=== PATIENT | female | born 1970 | race Caucasian/White ===

== ENCOUNTER 2023-06-20 07:11 | Inpatient (IN) | payer OTHER, MEDICAID ==
[~2023-06-20] VITALS: Ht 175.3 cm; Wt 67.1 kg
[2023-06-20] MEDS ORDERED: CLINDAMYCIN PHOS 900 MG/ D5W 50 ML PREMIX IV ONE (08:30)
[2023-06-20] MEDS ORDERED: CINA60TA PO (08:37)
[2023-06-20] MEDS ORDERED: LORA10TA7 PO (08:37)
[2023-06-20] MEDS ORDERED: PRO10 PO (08:37)
[2023-06-20] MEDS ORDERED: QUET300T2 PO (08:37)
[2023-06-20] MEDS ORDERED: ATOR10TA68 PO (08:37)
[2023-06-20] MEDS ORDERED: ONDANSETRON HCL 4 MG/2 ML VIAL ONE (09:38)
[2023-06-20] MEDS ORDERED: MIDAZOLAM HCL/PF 2 MG/2 ML SYRINGE ONE (09:38)
[2023-06-20] MEDS ORDERED: WATER FOR IRRIGATION,STERILE 1,000 ML IRRIG.SOLN IR ONE (09:38)
[2023-06-20] MEDS ORDERED: DEXAMETHASONE SOD PHOSPHATE 4 MG/ML VIAL ONE (09:38)
[2023-06-20] MEDS ORDERED: LIDOCAINE/EPI 1% 1:100000 20 ML VIAL ONE (09:38)
[2023-06-20] MEDS ORDERED: fentaNYL CITRATE/PF 100 MCG/2 ML AMP ONE (09:38)
[2023-06-20] MEDS ORDERED: NS IRRIG SOLN 1000 ML IR ONE (09:38)
[2023-06-20] MEDS ORDERED: SEVOFLURANE 15 MIN GAS INH ONE (09:38)
[2023-06-20] MEDS ORDERED: SUCCINYLCHOLINE CHLORIDE 20 MG/ML(QUELICIN) ONE (09:38)
[2023-06-20] MEDS ORDERED: MIDAZOLAM HCL 5 MG/5 ML VIAL IVP PRN (12:30)
[2023-06-20] MEDS ORDERED: HYDROmorphone 1 MG/ML INJ. CARTRIDGE IVP PRN ×2 (12:30)
[2023-06-20] MEDS ORDERED: ACETAMINOPHEN I.V. 1000 MG 100 ML IV ONE (12:30)
[2023-06-20] MEDS ORDERED: ONDANSETRON HCL 4 MG/2 ML VIAL IVP PRN ×2 (12:30→13:45)
[2023-06-20] MEDS ORDERED: NALOXONE HCL 0.4 MG/ML AMP (NARCAN) IVP PRN ×2 (12:30)
[2023-06-20] MEDS ORDERED: KETOROLAC TROMETHAMINE 30 MG VIAL IVP PRN (12:30)
[2023-06-20] MEDS ORDERED: ONDANSETRON 4 MG ODT TAB PO PRN (13:45)
[2023-06-20] MEDS ORDERED: NALOXONE HCL 2 MG/2 ML SYR IVP PRN (13:45)
[2023-06-20] MEDS ORDERED: HYDROcodone/ACETAMIN 5-325 MG TAB (NORCO/ VICODIN) PO PRN (13:45)
[2023-06-20 14:05] VITALS: BP_SYST 105; PULSE 66; RESP 16; TEMP 97.7; O2SAT 98
[2023-06-20 14:14] VITALS: BP_SYST 105; PULSE 66; RESP 16; TEMP 97.7; O2SAT 98
[2023-06-20 16:48] VITALS: BP_SYST 107; PULSE 64; RESP 16; TEMP 97.2; O2SAT 96
[2023-06-20 17:32] LABS: CALCIUM 9.2 mg/dL (8.4-11.0); CREATININE 0.83 mg/dL (0.55-1.30); POTASSIUM 3.9 mmol/L (3.5-5.1)
[2023-06-20] MEDS: KCL 20 mEq in D5/0.45NS 1000mL 1,000 ML IV SCH (19:07)
[2023-06-20 20:10] VITALS: BP_SYST 109; PULSE 78; RESP 18; TEMP 97.8; O2SAT 98
[2023-06-20 20:11] VITALS: O2SAT 98
[2023-06-21] VITALS: BP_SYST 115; PULSE 68; RESP 17; TEMP 96.7; O2SAT 100
[2023-06-21] MEDS: KCL 20 mEq in D5/0.45NS 1000mL 1,000 ML IV SCH (03:23)
[2023-06-21 06:52] LABS: ALBUMIN 3.2 g/dL (3.4-4.8); CALCIUM 8.1 mg/dL (8.4-11.0)
[2023-06-21] MEDS ORDERED: LEVOTHYROXINE SODIUM 0.112 MG TABLET PO SCH (07:00)
[2023-06-21 08:00] VITALS: BP_SYST 141; PULSE 74; RESP 18; TEMP 98; O2SAT 99
[2023-06-21] MEDS ORDERED: FLUoxetine HCL 10 MG CAPSULE (PROzac) PO SCH (09:00)
[2023-06-21] MEDS ORDERED: LORATADINE 10 MG TABLET PO SCH (09:00)
[2023-06-21] MEDS ORDERED: ATORVASTATIN 10 MG TABLET PO SCH (09:00)
[2023-06-21] MEDS ORDERED: QUEtiapine FUMARATE 100 MG TABLET PO SCH (09:00)
[2023-06-21 11:18] VITALS: BP_SYST 111; PULSE 79; RESP 16; TEMP 97.3; O2SAT 100
[2023-06-21] MEDS ORDERED: HYDR-3919 PO (13:53)
[2023-06-21 14:32] VITALS: BP_SYST 111; PULSE 79; RESP 16; TEMP 97.3; O2SAT 100
[2023-06-21 15:38] VITALS: BP_SYST 109; PULSE 97; RESP 16; TEMP 97.8; O2SAT 95
== END 2023-06-21 23:20 | disposition home or self-care (01) | DRG 627 ==
LOC: SMU 07:11 → EDSTATUS 09:00 → SMU 14:00
PROVIDERS: ADMIT Otolaryngology; ATTEND Otolaryngology
PROC: 0GTH0ZZ Resection of Right Thyroid Gland Lobe, Open Approach (ICD-10-PCS; 2023-06-20)
PROC: 4A11X4G Monitoring of Peripheral Nervous Electrical Activity, Intraoperative, External Approach (ICD-10-PCS; 2023-06-20)
PROC: 0GTG0ZZ Resection of Left Thyroid Gland Lobe, Open Approach (ICD-10-PCS; principal; 2023-06-20 09:38)
DX: E04.2 Nontoxic multinodular goiter (principal)
CPT/HCPCS: 36415; 80048; 82040; 82310; 83970; 87081; 88307; J0330; J1100; J2405; J3010; J3465; J3490